=== PATIENT | female | born 1995 | race Caucasian/White ===

== ENCOUNTER 2019-07-13 13:51 | Emergency (ER) | payer MEDICAID, OTHER ==
[~2019-07-13] VITALS: Ht 160 cm; Wt 56.7 kg
--- NOTE | 2019-07-13 14:04 | NUR ---
CAME IN FOR LEFT RIB AND R FOOT PAIN SINCE YESTERDAY WHILE PLAYING TACKLE FOOTBALL. TO ER BED 9, HOOKED TO MONITOR, PROVIDED W WARM BLANKET, AWAITING MD LARKIN.
--- NOTE | 2019-07-13 14:09 | NUR ---
LESLYE MOY AT BEDSIDE
[2019-07-13] MEDS ORDERED: KETOROLAC TROMETHAMINE INJ 30 MG/ML VIAL ONE (14:16)
[2019-07-13] MEDS ORDERED: KETOROLAC TROMETHAMINE INJ 60 MG/2 ML VIAL IM ONE (14:30)
--- NOTE | 2019-07-13 15:53 | NUR ---
Patient discharged to home in stable condition. Written and verbal after care instructions given. Patient verbalizes understanding of instruction.
[2019-07-13 15:54] VITALS: BP 109/71
== END 2019-07-13 15:54 | disposition home or self-care (01) ==
LOC: ER 13:57
DX: S20.212A Contusion of left front wall of thorax, initial encounter (principal); M76.892 Other specified enthesopathies of left lower limb, excluding foot; X58.XXXA Exposure to other specified factors, initial encounter; Y93.61 Activity, american tackle football; Y92.89 Other specified places as the place of occurrence of the external cause; Y99.8 Other external cause status
CPT/HCPCS: 71100; 84703; 96372; 99284; J1885